=== PATIENT | male | born 1980 | race Caucasian/White ===

== ENCOUNTER 2017-11-02 21:46 | Emergency (ER) | payer OTHER ==
[~2017-11-02] VITALS: Ht 185.4 cm; Wt 158.8 kg
[2017-11-02 21:47] VITALS: BP 161/109
[2017-11-02] MEDS ORDERED: NAPROSYN500 MG PO (22:00)
[2017-11-02] MEDS ORDERED: TESSALON PERLE100 MG PO (22:00)
[2017-11-02] MEDS ORDERED: PREDNISONE 20 M20 M1 (22:01)
[2017-11-02] MEDS ORDERED: GLUCOPHAGE XR500 MG (22:01)
[2017-11-02] MEDS ORDERED: LEVAQUIN 750 M750 MG PO (22:02)
[2017-11-02] MEDS ORDERED: HYDROCODONE-AP1 EAC6 PO (23:06)
[2017-11-02] MEDS ORDERED: VENTOLIN HFA 1818 GM INH (23:06)
[2018-06-11] MEDS ORDERED: PEPCID40 MG PO (07:35)
[2018-06-11] MEDS ORDERED: AUGMENTIN 875-1 EACH PO (07:35)
[2018-06-11] MEDS ORDERED: PREDNISONE 20 M20 MG PO (07:35)
[2018-06-11] MEDS ORDERED: BENADRYL25 MG PO (07:35)
== END 2017-11-02 23:10 | disposition home or self-care (01) ==
LOC: ER 21:46
DX: R09.1 Pleurisy (principal)

== ENCOUNTER 2018-11-01 04:40 | Emergency (ER) | payer OTHER ==
[~2018-11-01] VITALS: Ht 185.4 cm; Wt 163.3 kg
[~2018-11-01 04:40] MED LIST: AUGMENTIN 875-1 EACH PO; BENADRYL25 MG PO; GLUCOPHAGE XR500 MG; HYDROCODONE-AP1 EAC6 PO; LEVAQUIN 750 M750 MG PO; NAPROSYN500 MG PO; PEPCID40 MG PO; PREDNISONE 20 M20 M1; PREDNISONE 20 M20 MG PO; TESSALON PERLE100 MG PO; VENTOLIN HFA 1818 GM INH
[2018-11-01 05:18] LABS: ABSOLUTE NEUTROPHILS 4.1 thou/uL (1.4-8.2); BASOPHILS 0.4 % (0.0-2.0); EOSINOPHILS 1.1 % (0.0-3.0); HEMATOCRIT 40.2 % (42.0-52.0); HEMOGLOBIN 13.1 gm/dL (14.0-18.0); LYMPHOCYTES 25.3 % (24.0-44.0); MCH 26.5 pg (26.0-34.0); MCHC 32.7 g/dL (28.0-37.0); MONOCYTES 9.9 % (1.0-8.0); PLATELET COUNT 231 thou/uL (150-400); POLYS 63.3 % (36.0-66.0); RBC 4.96 mil/uL (4.50-6.00); WBC 6.4 thou/uL (4.0-11.0)
[2018-11-01 05:24] LABS: ANION GAP 11 mmol/L (7-16); BUN 11 mg/dL (7-18); CALCIUM 9.7 mg/dL (8.5-10.1); CHLORIDE 102 mmol/L (98-107); CO2 25 mmol/L (21-32); GLUCOSE 112 mg/dL (74-106); POTASSIUM 3.8 mmol/L (3.5-5.1); SODIUM 138 mmol/L (136-145)
[2018-11-01 05:33] LABS: TROPONIN-I <0.06 ng/mL (<0.06)
[2018-11-01 06:00] VITALS: BP 145/69
--- NOTE | 2018-11-01 08:17 | EKG ---
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
== END 2018-11-01 06:18 | disposition home or self-care (01) ==
LOC: ER 04:40
PROVIDERS: Emergency Medicine
DX: R00.2 Palpitations (principal); R42 Dizziness and giddiness; R06.02 Shortness of breath; E11.9 Type 2 diabetes mellitus without complications; Z87.891 Personal history of nicotine dependence

== ENCOUNTER 2018-11-08 14:43 | Emergency (ER) | payer OTHER ==
[~2018-11-08] VITALS: Ht 185.4 cm; Wt 158.8 kg
[2018-11-08] MEDS ORDERED: XANAX1 MG PO (14:55)
[2018-11-08] MEDS ORDERED: LEXAPRO20 MG PO ×2 (14:56)
[2018-11-08 15:16] LABS: ABSOLUTE NEUTROPHILS 6.2 thou/uL (1.4-8.2); BASOPHILS 0.5 % (0.0-2.0); EOSINOPHILS 0.3 % (0.0-3.0); HEMATOCRIT 42.8 % (42.0-52.0); LYMPHOCYTES 22.2 % (24.0-44.0); MCH 26.6 pg (26.0-34.0); MCHC 32.6 g/dL (28.0-37.0); MCV 81.8 fL (80.0-100.0); MONOCYTES 8.6 % (1.0-8.0); PLATELET COUNT 269 thou/uL (150-400); POLYS 68.4 % (36.0-66.0); RBC 5.24 mil/uL (4.50-6.00); RDW 15.7 % (10.5-14.5)
[2018-11-08 15:19] LABS: ANION GAP 5 mmol/L (7-16); BUN 17 mg/dL (7-18); CALCIUM 9.8 mg/dL (8.5-10.1); CHLORIDE 100 mmol/L (98-107); CO2 30 mmol/L (21-32); CREATININE 1.1 mg/dL (0.7-1.3); GLUCOSE 101 mg/dL (74-106); POTASSIUM 3.6 mmol/L (3.5-5.1); SODIUM 135 mmol/L (136-145)
[2018-11-08 15:29] LABS: ALBUMIN 4.1 g/dL (3.4-5.0); SGOT 27 U/L (15-37); SGPT 42 U/L (30-65); TOTAL BILIRUBIN 0.4 mg/dL (<0.1-1.0); TOTAL PROTEIN 8.5 g/dL (6.4-8.2); TROPONIN-I <0.06 ng/mL (<0.06)
[2018-11-08 16:58] VITALS: BP 123/76
--- NOTE | 2018-11-09 08:00 | EKG ---
[address] [place] [address] ELECTROCARDIOGRAM REPORT Name: ERIC HENNESSY Room #: DEP ELOY Nicole#: [id number] Admission: 11/08/18 Attend Phys: Discharge: 11/08/18 Date of : 76 Report #: [id number] THIS REPORT FOR: //name// 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
== END 2018-11-08 16:59 | disposition home or self-care (01) ==
LOC: ER 14:43
PROVIDERS: Nurse Practitioner Family
DX: F41.0 Panic disorder [episodic paroxysmal anxiety] (principal); M79.622 Pain in left upper arm; Z87.891 Personal history of nicotine dependence

== ENCOUNTER 2019-04-15 23:41 | Emergency (ER) | payer OTHER ==
[~2019-04-15] VITALS: Ht 185.4 cm; Wt 158.8 kg
[~2019-04-15 23:41] MED LIST changes: +LEXAPRO20 MG PO; +XANAX1 MG PO
[2019-04-16] MEDS ORDERED: PROTONIX40 M1 PO (02:02)
[2019-04-16] MEDS ORDERED: LOPRESSOR25 PO (02:24)
[2019-04-16] MEDS ORDERED: TRIAMCINOLONE A80 G2 TOP (02:25)
[2019-04-16] MEDS ORDERED: ZYRTEC10 M5 PO (02:25)
[2019-04-16] MEDS ORDERED: CBD (02:25)
[2019-04-16 02:27] VITALS: BP 156/78
--- NOTE | 2019-04-16 07:57 | EKG ---
[place] [address] [facility] [place] [address] ELECTROCARDIOGRAM REPORT Name: ERIC HENNESSY Room #: DEP Bonnie#: [id number] ������������������ Admission: 04/15/19 ������������������ Attend Phys: Discharge: 04/16/19 ������������������ Date of : 76 Report #: [id number] ����������������������������������������������������������������� [id number] THIS REPORT FOR: //name// 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1980 Requested By: Randall Garvey Order Number: [id number] MD: Harvey Randall Measurements Intervals [place] Rate: 96 P: 44 [place]: 172 QRS: 18 QRSD: 94 T: 58 QT: 324 QTc: 410 Interpretive Statements Sinus rhythm No significant abnormality Compared to ECG 11/08/2018 14:57:01 No significant change was found Electronically Signed On 04-16-2019 7:57:16 CDT by Harvey Randall [email or web address] ��������������������������������������������� <ELECTRONICALLY SIGNED> ���������������������������������������� By: Harvey Randall MD, [facility] ��������������������������������������������� 04/16/19 0757 2350 2350 Harvey Randall MD, FACC /EPI
== END 2019-04-16 02:23 | disposition home or self-care (01) ==
LOC: ER 23:41
DX: R07.89 Other chest pain (principal); K21.9 Gastro-esophageal reflux disease without esophagitis; Z87.891 Personal history of nicotine dependence; Z88.8 Allergy status to other drugs, medicaments and biological substances